=== PATIENT | male | born 1950 | race Two or more races ===

== ENCOUNTER 2020-03-05 11:25 | Day surgery (SDC) | payer OTHER ==
[2020-03-05] VITALS (7 sets, daily range): BP systolic 108–162; BP diastolic 54–93
[~2020-03-05] VITALS: Ht 170.2 cm; Wt 83.0 kg
[2020-03-05] MEDS ORDERED: Phenylephrine 2.5% Op 2ml Soln ONE (12:12)
[2020-03-05] MEDS ORDERED: Tropicamide 1% Opth 15ml Soln ONE (12:13)
[2020-03-05] MEDS: Tropicamide 1% Opth 15ml Soln RIGHT EYE SCH ×3 (12:23→12:48)
[2020-03-05] MEDS: Cyclopentolate 1% Opth Sol 2ml RIGHT EYE SCH ×4 (12:23→12:51)
[2020-03-05] MEDS: Phenylephrine 2.5% Op 2ml Soln RIGHT EYE SCH ×3 (12:24→12:47)
[2020-03-05] MEDS: Proparacaine 0.5% Opth Soln 15ml RIGHT EYE SCH ×2 (12:29→12:47)
[2020-03-05] MEDS ORDERED: prednisoLONE acetate 1% Opth Susp 1ml ONE (12:33)
[2020-03-05] MEDS ORDERED: Kenalog-40 1ml Vial ONE (12:33)
[2020-03-05] MEDS ORDERED: Lidocaine 2% MPF 5ml Vial INJ ONE (12:33)
[2020-03-05] MEDS ORDERED: Maxitrol Opth Oint 3.5gm ONE (12:33)
[2020-03-05] MEDS ORDERED: BSS 500ml btl ONE (12:34)
[2020-03-05] MEDS ORDERED: Acetylcholine Injection (OR) ONE (12:34)
[2020-03-05] MEDS ORDERED: Bupivacaine 0.75% 30ml vial INJ ONE (12:34)
[2020-03-05] MEDS ORDERED: BSS 15ml BTL ONE (12:34)
[2020-03-05] MEDS ORDERED: Tetracaine 0.5% Opth 4ml Soln ONE (12:34)
[2020-03-05] MEDS ORDERED: Povidone-Iodine 5% opth solution ONE (12:34)
[2020-03-05] MEDS ORDERED: Sodium Hyaluronate 10 mg/ml 0.85ml ONE (12:34)
--- NOTE | 2020-03-05 12:56 | Anethesia Preoperative Eval ---
Anesthesia Pre-op PMH/ROS General Date of Evaluation: Mar 05, 2020 Anesthesiologist: Narciso ASA Score: ASA 2 Mallampati Score Class I : Soft palate, uvula, fauces, pillars visible Class II: Soft palate, uvula, fauces visible Class III: Soft palate, base of uvula visible Class IV: Only hard plate visible Mallampati Classification: Class II Surgeon: Raffaele Diagnosis: Right eye macula puckering Surgical Procedure: Right eye vitrectomy Anesthesia History: none Family History: no anesthesia problems Allergies: Coded Allergies: No Known Allergies (Unverified , 03/05/20) Medications: see eMAR Patient NPO?: Yes NPO Date: Mar 05, 2020 NPO Time: 00:00 Past Medical History Cardiovascular: Denies: HTN, CAD, CA, valve dz, arrhythmia, other Pulmonary: Denies: asthma, COPD, ANTHONY, other Gastrointestinal/Genitourinary: Denies: GERD, CRI, ESRD, other Neurologic/Psychiatric: Denies: dementia, CVA, depression/anxiety, TIA, other Endocrine: Denies: DM, hypothyroidism, steroids, other HEENT: Denies: cataract (L), cataract (R), glaucoma, RED DEVIL (L), RED DEVIL (R), other Hematology/Immune: Denies: anemia, DVT, bleeding disorder, other Musculoskeletal/Integumentary: Denies: OA, RA, DJD, DDD, edema, other PSxH Narrative: bilateral cataract Anesthesia Pre-op Phys. Exam Physician Exam Last Vital Signs Date Time Temp Pulse Resp B/P (MAP) Pulse Ox O2 Delivery O2 Flow Rate FiO2 03/05/20 12:42 Room Air 03/05/20 12:08 96.8 71 18 134/77 97 Constitutional: NAD Cardiovascular: RRR Respiratory: CTA Airway Exam Mallampati Score: Class II MO: full ROM: full Anesthesia Pre-op A/P Labs see chart Studies Pre-op Studies: EKG - sr Risk Assessment & Plan Assessment: ASA I Plan: MAC Status Change Before Surgery: No Pre-Antibiotics Drug: N/A Reyna Stuart MD Mar 05, 2020 12:56
[2020-03-05] MEDS ORDERED: LR 1000ml 1,000 ML IVLG SCH (13:00)
[2020-03-05] MEDS ORDERED: DiphenhydrAMINE 50mg/ml Inj IVP PRN (13:00)
[2020-03-05] MEDS ORDERED: LORazepam Inj 2mg/ml 1ml IV PRN (13:00)
[2020-03-05] MEDS ORDERED: fentaNYL 100 mcg/2 mL IV PRN (13:00)
[2020-03-05] MEDS ORDERED: Labetalol 5mg/ml 20ml vial IV PRN (13:00)
[2020-03-05] MEDS ORDERED: Tropicamide 1% Opth 15ml Soln RIGHT EYE SCH (13:30)
[2020-03-05] MEDS ORDERED: Phenylephrine 2.5% Op 2ml Soln RIGHT EYE SCH (13:30)
[2020-03-05] MEDS ORDERED: Lidocaine 1% MPF 10mg/ml 5ml ONE (14:41)
[2020-03-05] MEDS ORDERED: NS Irrig 1000ml ONE (15:00)
[2020-03-05] MEDS ORDERED: Sterile Water Irrig 1000ml IRRIG ONE (15:00)
--- NOTE | 2020-03-05 15:26 | Immediate Post-Op Evaluation ---
Immediate Post-Op Evalulation Immediate Post-Op Evalulation Procedure: Right eye vitrectomy Date of Evaluation: Mar 05, 2020 Time of Evaluation: 15:29 IV Fluids: 200 Blood Products: 0 Estimated Blood Loss: 0 Urinary Output: 0 Blood Pressure Systolic: 162 Blood Pressure Diastolic: 93 Pulse Rate: 68 Respiratory Rate: 16 O2 Sat by Pulse Oximetry: 100 Temperature (Fahrenheit): 97.3 Pain Score (1-10): 0 Nausea: No Vomiting: No Complications 0 Patient Status: awake, reacts, patent, none Hydration Status: adequate Drug: N/A Reyna Stuart MD Mar 05, 2020 15:26
--- NOTE | 2020-03-05 15:27 | 48 Hour Post Anesthesia Eval ---
Post Anesthesia Evaluation Procedure: Right eye vitrectomy Date of Evaluation: Mar 05, 2020 Airway: patent Nausea: No Vomiting: No Hydration Status: adequate Cardiopulmonary Status: at baseline Mental Status/LOC: patient returned to baseline Post-Anesthesia Complications: 0 Follow-up care needed: ready to discharge Reyna Stuart MD Mar 05, 2020 15:27
--- NOTE | 2020-03-05 16:58 | Pre-Procedure Note/Attestation ---
Pre-Procedure Note/Attestation Complete Prior to Procedure Planned Procedure: right Procedure Narrative: PPV OD Indications for Procedure Pre-Operative Diagnosis: VO/ERM OD Attestation I attest that I discussed the nature of the procedure; its benefits; risks and complications; and alternatives (and the risks and benefits of such alternatives), prior to the procedure, with the patient (or the patient's legal publications sales representative). I attest that, if there was a reasonable possibility of needing a blood transfusion, the patient (or the patient's legal publications sales representative) was given the [facility] standardized written summary, pursuant to the Jam Saroj Blood Safety Act ([place] Health and Safety Code # 1645, as amended). I attest that I re-evaluated the patient just prior to the surgery and that there has been no change in the patient's H&P, except as documented below: Darrick Castorena M.D., MD Mar 05, 2020 16:58
--- NOTE | 2020-03-05 16:58 | Operative Note - PDOC ---
Operative Note Operative Note Pre-op Diagnosis: VO/ERM OD Procedure: PPV/EL/AFE OD Post-op Diagnosis: Same Post-op Diagnosis: same as pre-op Surgeon: Raffaele Anesthesia: local Specimen: none Complications: none Condition: stable Estimated Blood Loss: none Drains: none Implant(s) used?: No Indications for Procedure [place] [facility] [place] Diagnosis: 1. VO/History of RD, RIGHT EYE Post-operative Diagnosis: Same Procedure: Pars plana vitrectomy, endolaser, air-fluid exchange, RIGHT EYE Surgeon: Darrick Castorena M.D. Anesthesia: RB Complications: None Indications for the procedure: The patient has vision loss due dense VO and presents today for surgery after review of the risks, benefits, alternative and signing informed consent into the medical chart. Description of Procedure Procedure performed: The patient was met in the pre-operative area where informed consent was reviewed. The operative eye was verified, marked and dilated. The patient was transferred to the operative suite, where cardiopulmonary monitoring was established and peribulbar anesthetic was administered without complications. The eye was prepped and draped in sterile ophthalmic fashion. Under microscope visualization the 23 gauge infusion line was placed 4 millimeters inferotemporally. After visualization of the tip in the vitreous cavity, the infusion line was turned on. The superotemporal and superonasal cannulas were placed. Under BIOM visualization, peripheral and core vitrectomy was performed. Inspection of the periphery revealed no iatrogenic breaks; endolaser was applied to protect from retinal detachment. Air fluid exchange was performed. The cannulas were removed and the eye maintained normal intraocular pressure. Subconjunctival vancomycin and dexamethasone were administered. The lid speculum was removed. The eye was cleaned of prep and drape. Atropine drop and Maxitrol ointment was applied. A pressure patch was placed. The patient was turned over to the anesthesia team and transferred in stable condition to the PACU. Darrick Castorena M.D., MD Mar 05, 2020 16:58
== END 2020-03-05 16:20 | disposition home or self-care (01) ==
LOC: SUR 11:25
DX: H43.391 Other vitreous opacities, right eye (principal); H35.371 Puckering of macula, right eye; I10 Essential (primary) hypertension
CPT/HCPCS: 94003; 94150; U0002